=== PATIENT | female | born 1995 | race Caucasian/White ===

== ENCOUNTER 2018-03-04 05:15 | Inpatient (IN) | payer MEDICAID ==
[2018-03-04] MEDS ORDERED: Sodium Chloride 0.9% 2.5 ML Syringe FLUSH PRN (05:32)
[2018-03-04] MEDS ORDERED: ceFAZolin 2 GM in Premix Bag 1 BAG IV ONE (05:32)
[2018-03-04] MEDS ORDERED: Sodium Chloride 0.9% 10 ML Syringe FLUSH PRN (05:32)
[2018-03-04] MEDS ORDERED: Oxytocin/0.9 % Sodium Chloride 30 UNIT/500 ML BAG IV SCH (05:45)
[2018-03-04] MEDS ORDERED: Citric Acid/Sodium Citrate Solution 30 ML Cup PO SCH (05:45)
[2018-03-04] MEDS: Lactated Ringers 1,000 ML IV SCH ×3 (05:51→08:21)
--- NOTE | 2018-03-04 07:20 | PCM.PREANE ---
Preanesthetic Assessment - Anesthesia/Transfusion/Family Hx Anesthesia History: Prior Anesthesia Reaction Other Type of Anesthesia Reaction Comment: Vomiting; headache after spinal for 2nd 17 months ago... Family History of Anesthesia Reaction: No Transfusion History: No Prior Transfusion(s) Type of Transfusion Reactions: Reports: Other (see below) Additional History: Baby #3 - Review of Systems General: Other (term ) Pulmonary: No Symptoms Cardiovascular: No Symptoms Gastrointestinal: Other (GERD) Neurological: Gait Disturbance (due to posture with ) Other: Reports: None - Physical Assessment NPO Status Date: 03/03/18 NPO Status Time: 22:00 Height: 5 ft Weight: 190 lb ASA Class: 2 Mental Status: Alert & Oriented x3 Airway Class: Mallampati = 1 Dentition: Reports: Normal Dentition Thyro-Mental Finger Breadths: 3 Mouth Opening Finger Breadths: 3 ROM/Head Extension: Full Lungs: Clear to Auscultation, Normal Respiratory Effort Cardiovascular: Regular Rate, Regular Rhythm, No Murmurs - Lab Values: Laboratory Last Values WBC 8.55 K/uL (4.0-11.0) 03/04/18 05:50 RBC 4.19 M/uL (4.30-5.90) L 03/04/18 05:50 Hgb 13.2 g/dL (12.0-16.0) 03/04/18 05:50 Hct 38.7 % (36.0-46.0) 03/04/18 05:50 MCV 92.4 fL (80.0-98.0) 03/04/18 05:50 MCH 31.5 pg (27.0-32.0) 03/04/18 05:50 MCHC 34.1 g/dL (31.0-37.0) 03/04/18 05:50 RDW Std Deviation 44.3 fl (28.0-62.0) 03/04/18 05:50 RDW Coeff of Rosalia 13 % (11.0-15.0) 03/04/18 05:50 Plt Count 160 K/uL (150-400) 03/04/18 05:50 MPV 11.00 fL (7.40-12.00) 03/04/18 05:50 Nucleated RBC % 0.0 /100WBC 03/04/18 05:50 Nucleated RBCs # 0 K/uL 03/04/18 05:50 Blood Type O POSITIVE 03/04/18 05:50 Antibody Screen NEGATIVE 03/04/18 05:50 - Allergies Allergies/Adverse Reactions: Allergies Allergy/AdvReac Type Severity Reaction Status Date / Time morphine Allergy Itching Verified 02/28/18 11:18 - Blood Blood Available: No Product(s) Available: PRBC (T and S) - Anesthesia Plan Pre-Op Medication Ordered: Antacids - Acknowledgements Anesthesia Type Planned: Spinal Pt an Appropriate Candidate for the Planned Anesthesia: Yes Alternatives and Risks of Anesthesia Discussed w Pt/Guardian: Yes Pt/Guardian Understands and Agrees with Anesthesia Plan: Yes Additional Comments: no morphine in spinal due to svere pruritis hx PreAnesthesia Questionnaire Gastrointestinal History: Reports: GERD Genitourinary History: Reports: Other (See Below) Other Genitourinary History: has one normal kidney and one "very small kidney" [employer]CH[employer]ICIAN History: Reports: Musculoskeletal History: Reports: Fracture Other Musculoskeletal History: hx of fx right great toe and ribs Endocrine/Metabolic History: Reports: Obesity/BMI 30+ - Infectious Disease History Infectious Disease History: Reports: Chicken Pox - Past Surgical History GI Surgical History: Reports: Cholecystectomy Female Surgical History: Reports: Section - SUBSTANCE USE Smoking Status *Q: Never Smoker Tobacco Use Within Last Twelve Months: No Second Hand Smoke Exposure: No Recreational Drug Use History: No - HOME MEDS Home Medications: Home Meds Vit W-Ca,Fe,FA(<1 mg) [ Vitamins] 1 tab PO DAILY 02/28/18 [ History] - CURRENT (IN HOUSE) MEDS Current Meds: Current Medications Citric Acid/Sodium Citrate (Bicitra Solution) 30 ml PO .ONCE TORIBIO Lactated Ringer's (Ringers, Lactated) 1,000 mls @ 500 mls/hr IV .BOLUS TORIBIO Last Admin: 03/04/18 06:41 Dose: 500 mls/hr Oxytocin/Sodium Chloride (Oxytocin 30 Unit/500 Ml-Ns) 30 unit in 500 mls @ 250 mls/hr IV TITRATE TORIBIO Sodium Chloride (Saline Flush) 10 ml FLUSH ASDIRECTED PRN PRN Reason: Keep Vein Open Sodium Chloride (Saline Flush) 2.5 ml FLUSH ASDIRECTED PRN PRN Reason: Keep Vein Open Discontinued Medications Cefazolin Sodium/Dextrose 2 gm (/ Premix) 50 mls @ 100 mls/hr IV ONETIME ONE Stop: 03/04/18 06:01
[2018-03-04] MEDS ORDERED: ePHEDrine 50 MG/ML SDV ONE (07:34)
[2018-03-04] MEDS ORDERED: Propofol 200 MG/20 ML SDV ONE (07:34)
[2018-03-04] MEDS ORDERED: Succinylcholine 200 MG/10 ML MDV ONE (07:34)
[2018-03-04] MEDS ORDERED: fentaNYL 100 MCG/2 ML SDV ONE (07:34)
[2018-03-04] MEDS ORDERED: Oxytocin 10 Units/1 ML SDV ONE (07:36)
[2018-03-04] MEDS ORDERED: ceFAZolin/Dextrose,Iso-Osmotic 2 GM/50 ML Duplex Bag IV ONE (07:56)
[2018-03-04] MEDS ORDERED: Nalbuphine 10 MG/ML 10 ML MDV ONE (10:01)
[2018-03-04] MEDS ORDERED: Octyl 2-Cyanoacrylate 1 Tube ONE (10:03)
[2018-03-04] MEDS ORDERED: Lidocaine 2% 5 ML SDV ONE (10:19)
--- NOTE | 2018-03-04 10:19 | PCM.OPNOTE ---
- General Post-Op/Procedure Note Date of Surgery/Procedure: 03/04/18 Operative Procedure(s): repeat low transverse Findings: Liveborn male 05/04 weight 3820 grams, normal pelvis Pre Op Diagnosis: 39 week prior , declines VTOL Post-Op Diagnosis: Same Anesthesia Technique: Spinal Primary Surgeon: Oriana Hurtado Anesthesia Provider: Patricio Price Pathology: none Fluid Replacement, Intraop: 1,000 Output, Urine Amount: 60 EBL in mLs: 500 Complications: None Known Condition: Good
[2018-03-04] MEDS ORDERED: Bisacodyl 10 MG Supp RECTAL PRN (10:23)
[2018-03-04] MEDS ORDERED: Lanolin 100% Cream 7 GM Tube TOP PRN (10:23)
[2018-03-04] MEDS ORDERED: diphenhydrAMINE 50 MG/ML SDV IVPUSH PRN (10:23)
[2018-03-04] MEDS ORDERED: Ondansetron 4 MG/2 ML SDV IV PRN (10:23)
[2018-03-04] MEDS ORDERED: Lactated Ringers 1,000 ML IV SCH (10:30)
[2018-03-04] MEDS: Ketorolac 30 MG/ML SDV IVPUSH SCH ×3 (10:53→22:26)
--- NOTE | 2018-03-04 11:08 | PCM.POSTAN ---
POST ANESTHESIA ASSESSMENT - MENTAL STATUS Mental Status: Alert, Oriented - RESPIRATORY Respiratory Status: Respiratory Rate WNL, Airway Patent, O2 Saturation Stable - CARDIOVASCULAR CV Status: Pulse Rate WNL, Blood Pressure Stable - GASTROINTESTINAL GI Status: No Symptoms - PAIN Pain Score: 0 - POST OP HYDRATION Hydration Status: Adequate & Stable - OBSERVATIONS Free Text/Narrative:: Pt stable for discharge to phase II recovery on OB.
--- NOTE | 2018-03-04 13:40 | OR ---
SURGEON: Oriana Hurtado M.D. DATE OF PROCEDURE: 03/04/2018 PREOPERATIVE DIAGNOSES: 1. 39-week intrauterine . 2. Prior delivery x2. 3. Declines vaginal trial of labor. POSTOPERATIVE DIAGNOSES: 1. 39-week intrauterine . 2. Prior delivery x2. 3. Declines vaginal trial of labor. PROCEDURE: Repeat low-transverse section. ANESTHESIA: Spinal. ESTIMATED BLOOD LOSS: Less than 500 mL. FLUIDS: 1000 mL of crystalloid. URINE OUTPUT: 60 mL. FINDINGS: Live-born male, score 9 and 9, weighing 3820 g. Normal-appearing uterus, tubes, and ovaries. COMPLICATIONS: None known. DISPOSITION: Stable to recovery. BRIEF HISTORY: This is a 22-year-old female, she is G3, P2-0-0-2. She presents at 39 weeks' gestation for repeat low-transverse section with risks discussed including bleeding, infection, injury to bowel, bladder, blood vessels, ureters, other organs, risk of thromboembolic event, and risk of anesthesia. She has had uncomplicated course. She desires to proceed with repeat . DESCRIPTION OF PROCEDURE: With the patient in the left tilt position under adequate spinal analgesia, the abdomen was prepped with Betadine and draped in the usual fashion for abdominal surgery. SCDs were in place. Andrea catheter was in place and an appropriate time-out was held. After documentation of adequate analgesia, the prior cicatrix was excised and the skin was carried through the subcutaneous tissue in a transverse fashion to the fascia, which was carried transversely in the midline. The fascia was elevated and using curved Sharp scissors, incision was extended laterally. The fascia was elevated from the underlying rectus muscle and using sharp and blunt dissection. The peritoneum was entered in the midline using hemostats and entering with Metzenbaum scissors. A finger was placed into the peritoneal cavity. There was no evidence of any adhesions anteriorly; therefore, the incision was extended using sharp and blunt dissection. The Josias O retractor was placed. The visceroperitoneum over the lower uterine segment was incised and an adequate bladder flap was developed and a transverse curvilinear incision was made over the lower uterine segment with a scalpel. The incision was extended using blunt dissection. The amniotic membranes were ruptured. Clear fluid was noted. The head was delivered via the uterine incision with fundal pressure. The was bulb suctioned by nose and mouth. The remainder of the 's body was delivered without any difficulty and the cord was clamped x2 and cut. The handed to the nurse in attendance at delivery. The infant was a liveborn male, score 9 and 9, weighing 3820 g. Cord blood was collected for cord ABGs as well as routine cord blood sampling. Pitocin was initiated after delivery of the infant to assist with delivery of the placenta, which was delivered with manual assistance. The uterus was cleaned with dry laparotomy tape. The cervix was opened with ring forceps. The uterine incision was closed with a running lock suture of 0 Polysorb followed by an imbricating layer of 0 Polysorb. The uterine incision was carefully inspected. There were few areas of bleeding from prior blood vessels from prior surgery. These were cauterized. A single figure- of-eight suture was placed in the midline for complete hemostasis. The tubes and ovaries were inspected. They appeared normal. The pericolic gutters and posterior cul-de-sac were cleaned with wet laparotomy tape. The uterine incision was again inspected, it was completely hemostatic. Therefore, the Josias O retractor was removed. Final inspection confirmed hemostasis. The rectus muscle and peritoneum were then loosely approximated in the midline using a running mattress suture of 0 Polysorb. Posterior aspect of the fascia was inspected and any areas of bleeding that were noted were cauterized. The fascial incision was closed with a running suture of 0 Polysorb. Subcutaneous tissue was copiously irrigated. Any areas of bleeding that were noted were cauterized. The skin was closed with a running subcuticular suture of 3-0 Monocryl followed by Dermabond. Final sponge, needle, and instrument counts were reported as correct. There were no known complications. Mother is in recovery in good condition. Infant is in nursery in good condition. MANISHA / TY /[id number]
[2018-03-04] MEDS: Docusate Sodium 100 MG Cap PO SCH (22:26)
--- NOTE | 2018-03-04 23:24 | PCM48HPAN ---
Post Anesthesia Note - EVALUATION WITHIN 48HRS OF ANESTHETIC Vital Signs in Normal Range: Yes Patient Participated in Evaluation: Yes Respiratory Function Stable: Yes Airway Patent: Yes Cardiovascular Function Stable: Yes Hydration Status Stable: Yes Pain Control Satisfactory: Yes Nausea and Vomiting Control Satisfactory: Yes Mental Status Recovered: Yes Resp Rate: 20 Blood Pressure: 117/58 - COMMENTS/OBSERVATIONS Free Text/Narrative:: Pt doing well, just wants to sleep - refused last dose of IV Tordol per nursing. No apparent anesthesia complications.
[2018-03-05] MEDS: Ketorolac 30 MG/ML SDV IVPUSH SCH ×4 (00:30→10:14)
[2018-03-05] MEDS: Acetaminophen/HYDROcodone 325-10 MG Tab PO PRN ×2 (05:45→19:57)
--- NOTE | 2018-03-05 08:56 | PCM.PNPP ---
- General Info Date of Service: 03/05/18 Admission Dx/Problem (Free Text): Functional Status: Reports: Pain Controlled, Tolerating Diet, Ambulating, Urinating - Review of Systems General: Reports: No Symptoms HEENT: Reports: No Symptoms Pulmonary: Reports: No Symptoms Cardiovascular: Reports: No Symptoms Gastrointestinal: Reports: No Symptoms Genitourinary: Reports: No Symptoms Musculoskeletal: Reports: No Symptoms Skin: Reports: No Symptoms Neurological: Reports: No Symptoms Psychiatric: Reports: No Symptoms - Patient Data Vital Signs - Most Recent: Last Vital Signs Temp 36.6 C 03/05/18 08:41 Pulse 90 03/05/18 08:41 Resp 20 03/05/18 08:41 BP 106/67 03/05/18 08:41 Pulse Ox 96 03/05/18 08:41 Weight - Most Recent: 86.183 kg Lab Results - Last 24 Hours: Laboratory Results - last 24 hr 03/05/18 Range/Units 05:03 Hgb 11.9 L (12.0-16.0) g/dL Hct 35.1 L (36.0-46.0) % Med Orders - Current: Current Medications Hydrocodone Bitart/Acetaminophen ([place] 325-10 Mg) 1 tab PO Q4H PRN PRN Reason: Abdominal Pain Last Admin: 03/05/18 05:45 Dose: 1 tab Bisacodyl (Dulcolax) 10 mg RECTAL .ONCE PRN PRN Reason: Constipation Diphenhydramine HCl (Benadryl) 25 mg IVPUSH Q6H PRN PRN Reason: Itching or Nausea Docusate Sodium (Colace) 100 mg PO BID [facility] Last Admin: 03/04/18 22:26 Dose: 100 mg Emollient Ointment (Lansinoh Hpa) 0 gm TOP ASDIRECTED PRN PRN Reason: Sore Nipples Lactated Ringer's (Ringers, Lactated) 1,000 mls @ 75 mls/hr IV ASDIRECTED [facility] Ibuprofen (Motrin) 800 mg PO Q8H PRN PRN Reason: mild pain or fever Ketorolac Tromethamine (Toradol) 30 mg IVPUSH Q6H [facility] Stop: 03/05/18 10:31 Last Admin: 03/05/18 08:11 Dose: 30 mg Ondansetron HCl (Zofran) 4 mg IV Q4H PRN PRN Reason: Nausea/Vomiting Discontinued Medications Cefazolin Sodium/Dextrose (Ancef) Confirm Administered Dose 2 gm IV .STK-MED ONE Stop: 03/04/18 07:57 Citric Acid/Sodium Citrate (Bicitra Solution) 30 ml PO .ONCE TORIBIO Last Admin: 03/04/18 08:22 Dose: 30 ml Ephedrine Sulfate (Ephedrine Sulfate) Confirm Administered Dose 50 mg .ROUTE .STK-MED ONE Stop: 03/04/18 07:35 Fentanyl (Sublimaze) Confirm Administered Dose 100 mcg .ROUTE .STK-MED ONE Stop: 03/04/18 07:35 Cefazolin Sodium/Dextrose 2 gm (/ Premix) 50 mls @ 100 mls/hr IV ONETIME ONE Stop: 03/04/18 06:01 Lactated Ringer's (Ringers, Lactated) 1,000 mls @ 500 mls/hr IV .BOLUS TORIBIO Last Admin: 03/04/18 08:21 Dose: 150 mls/hr Oxytocin/Sodium Chloride (Oxytocin 30 Unit/500 Ml-Ns) 30 unit in 500 mls @ 250 mls/hr IV TITRATE TORIBIO Lidocaine (Xylocaine-Mpf 2%) Confirm Administered Dose 5 ml .ROUTE .STK-MED ONE Stop: 03/04/18 10:20 Nalbuphine HCl (Nubain) Confirm Administered Dose 100 mg .ROUTE .STK-MED ONE Stop: 03/04/18 10:02 Octyl Cyanoacrylate (Dermabond Advance) Confirm Administered Dose 1 applic .ROUTE .STK-MED ONE Stop: 03/04/18 10:04 Oxytocin (Pitocin) Confirm Administered Dose 30 unit .ROUTE .STK-MED ONE Stop: 03/04/18 07:37 Propofol (Diprivan 20 Ml) Confirm Administered Dose 200 mg .ROUTE .STK-MED ONE Stop: 03/04/18 07:35 Sodium Chloride (Saline Flush) 10 ml FLUSH ASDIRECTED PRN PRN Reason: Keep Vein Open Sodium Chloride (Saline Flush) 2.5 ml FLUSH ASDIRECTED PRN PRN Reason: Keep Vein Open Succinylcholine Chloride (Quelicin) Confirm Administered Dose 200 mg .ROUTE .STK -MED ONE Stop: 03/04/18 07:35 - Interaction Infant Disposition, : [place] in Room with Family Interaction: Holding Feeding: Other (see below) (pumping) Support Person: Significant Other - Recovery Exam Fundal Tone: Firm Fundal Level: At Umbilicus Fundal Placement: Midline Lochia Amount: Scant Lochia Color: Rubra/Red Bladder Status: Voiding Urinary Elimination: Indwelling Catheter - Exam General: Alert, Oriented HEENT: Pupils Equal Neck: Supple Lungs: Clear to Auscultation, Normal Respiratory Effort Cardiovascular: Regular Rate, Regular Rhythm GI/Abdominal Exam: Normal Bowel Sounds, Soft, Non-Tender, No Organomegaly, No Distention Extremities: Normal Inspection, Non-Tender, No Pedal Edema Skin: Warm, Dry, Intact Wound/Incisions: Healing Well Neurological: No New Focal Deficit Psy/Mental Status: Alert, Normal Affect, Normal Mood - Problem List & Annotations (1) delivery delivered SNOMED Code(s): 815450352 Code(s): O82 - ENCOUNTER FOR DELIVERY WITHOUT INDICATION Status: Acute Current Visit: Yes - Problem List Review Problem List Initiated/Reviewed/Updated: Yes - My Orders Last 24 Hours: My Active Orders 03/04/18 10:23 Patient Status [ADT] Routine Ambulate [RC] PER UNIT ROUTINE Communication Order [RC] PER UNIT ROUTINE Communication Order [RC] PER UNIT ROUTINE May Shower [RC] ASDIRECTED Notify Provider Intake and Out [RC] ASDIRECTED Notify Provider Vital Signs [RC] ASDIRECTED RT Incentive Spirometry [RC] Q2HWA Vital Signs [RC] PER UNIT ROUTINE Acetaminophen/HYDROcodone [[place] 325-10 MG] 1 tab PO Q4H PRN Bisacodyl [Dulcolax] 10 mg RECTAL .ONCE PRN Ibuprofen [Motrin] 800 mg PO Q8H PRN Lanolin [Lansinoh HPA] See Dose Instructions TOP ASDIRECTED PRN Ondansetron [Zofran] 4 mg IV Q4H PRN diphenhydrAMINE [Benadryl] 25 mg IVPUSH Q6H PRN Abdominal Binder [OM.PC] Urgent Assess Lochia [WOMSER] Per Unit Routine Assess Uterine Involution [WOMSER] Per Unit Routine Breast Pump [WOMSER] Per Unit Routine Peripheral IV Discontinue [OM.PC] Routine Sequential Compression Device [OM.PC] Per Unit Routine Resuscitation Status Routine 03/04/18 10:30 Ketorolac [Toradol] 30 mg IVPUSH Q6H Lactated Ringers [Ringers, Lactated] 1,000 ml IV ASDIRECTED 03/04/18 21:00 Docusate Sodium [Colace] 100 mg PO BID 03/04/18 Lunch Regular Diet [DIET] - Assessment Assessment:: POD#1 after repeat low transverse Stable, minimal lochia, minimal pain. She is using oral pain medications only. Pumping and bottle feeding. - Plan Plan:: Continue postop care, anticipate home in am.
[2018-03-05] MEDS: Ibuprofen 800 MG Tab PO PRN ×2 (13:58→22:42)
[2018-03-05] MEDS: Docusate Sodium 100 MG Cap PO SCH ×2 (13:58→22:43)
[2018-03-06] MEDS: Acetaminophen/HYDROcodone 325-10 MG Tab PO PRN ×2 (02:11→09:55)
--- NOTE | 2018-03-06 08:14 | PCM.PNPP ---
- General Info Date of Service: 03/06/18 Admission Dx/Problem (Free Text): Functional Status: Reports: Pain Controlled, Tolerating Diet, Ambulating, New Symptoms (left leg has become more swollen than the right, slightly tender.) - Review of Systems General: Reports: No Symptoms HEENT: Reports: No Symptoms Pulmonary: Reports: No Symptoms Cardiovascular: Reports: Edema Gastrointestinal: Reports: No Symptoms Genitourinary: Reports: No Symptoms Musculoskeletal: Reports: No Symptoms Skin: Reports: No Symptoms Neurological: Reports: No Symptoms Psychiatric: Reports: No Symptoms Systems Review Comment:: pumping getting about 6 oz - Patient Data Vital Signs - Most Recent: Last Vital Signs Temp 36.5 C 03/06/18 04:00 Pulse 87 03/05/18 21:00 Resp 16 03/06/18 04:00 BP 111/61 03/06/18 04:00 Pulse Ox 97 03/06/18 04:00 Weight - Most Recent: 86.183 kg Med Orders - Current: Current Medications Hydrocodone Bitart/Acetaminophen ([place] 325-10 Mg) 1 tab PO Q4H PRN PRN Reason: Abdominal Pain Last Admin: 03/06/18 02:11 Dose: 1 tab Bisacodyl (Dulcolax) 10 mg RECTAL .ONCE PRN PRN Reason: Constipation Diphenhydramine HCl (Benadryl) 25 mg IVPUSH Q6H PRN PRN Reason: Itching or Nausea Docusate Sodium (Colace) 100 mg PO BID TORIBIO Last Admin: 03/05/18 22:43 Dose: 100 mg Emollient Ointment (Lansinoh Hpa) 0 gm TOP ASDIRECTED PRN PRN Reason: Sore Nipples Lactated Ringer's (Ringers, Lactated) 1,000 mls @ 75 mls/hr IV ASDIRECTED [facility] Ibuprofen (Motrin) 800 mg PO Q8H PRN PRN Reason: mild pain or fever Last Admin: 03/05/18 22:42 Dose: 800 mg Ondansetron HCl (Zofran) 4 mg IV Q4H PRN PRN Reason: Nausea/Vomiting Discontinued Medications Cefazolin Sodium/Dextrose (Ancef) Confirm Administered Dose 2 gm IV .STK-MED ONE Stop: 03/04/18 07:57 Citric Acid/Sodium Citrate (Bicitra Solution) 30 ml PO .ONCE TORIBIO Last Admin: 03/04/18 08:22 Dose: 30 ml Ephedrine Sulfate (Ephedrine Sulfate) Confirm Administered Dose 50 mg .ROUTE .STK-MED ONE Stop: 03/04/18 07:35 Fentanyl (Sublimaze) Confirm Administered Dose 100 mcg .ROUTE .STK-MED ONE Stop: 03/04/18 07:35 Cefazolin Sodium/Dextrose 2 gm (/ Premix) 50 mls @ 100 mls/hr IV ONETIME ONE Stop: 03/04/18 06:01 Lactated Ringer's (Ringers, Lactated) 1,000 mls @ 500 mls/hr IV .BOLUS TORIBIO Last Admin: 03/04/18 08:21 Dose: 150 mls/hr Oxytocin/Sodium Chloride (Oxytocin 30 Unit/500 Ml-Ns) 30 unit in 500 mls @ 250 mls/hr IV TITRATE TORIBIO Ketorolac Tromethamine (Toradol) 30 mg IVPUSH Q6H TORIBIO Stop: 03/05/18 10:31 Last Admin: 03/05/18 10:14 Dose: Not Given Lidocaine (Xylocaine-Mpf 2%) Confirm Administered Dose 5 ml .ROUTE .STK-MED ONE Stop: 03/04/18 10:20 Nalbuphine HCl (Nubain) Confirm Administered Dose 100 mg .ROUTE .STK-MED ONE Stop: 03/04/18 10:02 Octyl Cyanoacrylate (Dermabond Advance) Confirm Administered Dose 1 applic .ROUTE .STK-MED ONE Stop: 03/04/18 10:04 Oxytocin (Pitocin) Confirm Administered Dose 30 unit .ROUTE .STK-MED ONE Stop: 03/04/18 07:37 Propofol (Diprivan 20 Ml) Confirm Administered Dose 200 mg .ROUTE .STK-MED ONE Stop: 03/04/18 07:35 Sodium Chloride (Saline Flush) 10 ml FLUSH ASDIRECTED PRN PRN Reason: Keep Vein Open Sodium Chloride (Saline Flush) 2.5 ml FLUSH ASDIRECTED PRN PRN Reason: Keep Vein Open Succinylcholine Chloride (Quelicin) Confirm Administered Dose 200 mg .ROUTE .STK -MED ONE Stop: 03/04/18 07:35 - Infant Interaction Infant Disposition, : at Bedside Infant Interaction: Holding Infant Infant Feeding: Other (see below) (pumping) Support Person: Significant Other - Recovery Exam Fundal Tone: Firm Fundal Level: At Umbilicus Fundal Placement: Midline Lochia Amount: Scant Lochia Color: Rubra/Red Perineum Description: Intact, Minimal Bruising/Swelling Episiotomy/Laceration: None Bladder Status: Voiding Urinary Elimination: Indwelling Catheter - Exam General: Alert, Oriented HEENT: Pupils Equal Neck: Supple Lungs: Normal Respiratory Effort GI/Abdominal Exam: Soft, No Organomegaly, No Distention Extremities: Normal Inspection, Normal Range of Motion, Non-Tender, Normal Capillary Refill. No: No Pedal Edema (1+ on right, 2+ on left, no erythema or warmth, no Bev's sign) Skin: Warm, Dry, Intact Wound/Incisions: Healing Well Neurological: No New Focal Deficit Psy/Mental Status: Alert, Normal Affect, Normal Mood - Problem List & Annotations (1) delivery delivered SNOMED Code(s): 801815295 Code(s): O82 - ENCOUNTER FOR DELIVERY WITHOUT INDICATION Status: Acute Current Visit: Yes - Problem List Review Problem List Initiated/Reviewed/Updated: Yes - My Orders Last 24 Hours: My Active Orders 03/06/18 08:09 Venous Doppler Lwr Ext Lt [US] Urgent - Assessment Assessment:: POD#2 after repeat low transverse Stable, minimal lochia, minimal pain. She is doing well on oral pain medications only. Pumping and bottle feeding. She has noticed more swelling and tenderness on left lower extremity compared to the right, low suspicion on clinical exam, but will get doppler. - Plan Plan:: Check doppler LLE to rule out DVT, if normal, may be discharged to home. Discharge instructions reviewed. Continue pain medication, and vitamins
--- NOTE | 2018-03-06 09:15 | US ---
ULTRASOUND EXAMINATION OF the left lower extremity WITH DOPPLER HISTORY: Swelling FINDINGS: Examination of the left leg was performed from the groin to the calf region. All visualized segments including common femoral, proximal greater saphenous, superficial femoral, popliteal and calf veins appear patent with good compressibility and augmentation. There is no evidence of deep vein thrombos is. IMPRESSION: No evidence of a DVT.
[2018-03-06] MEDS: Docusate Sodium 100 MG Cap PO SCH (09:55)
== END 2018-03-06 10:05 | disposition home or self-care (01) | DRG 766 ==
LOC: MW.OB 05:15
PROVIDERS: ADMIT Obstetrics & Gynecology; ATTEND Obstetrics & Gynecology
PROC: 10D00Z1 Extraction of Products of Conception, Low, Open Approach (ICD-10-PCS; principal; 2018-03-04)
DX: O34.211 Maternal care for low transverse scar from previous cesarean delivery (principal); M79.89 Other specified soft tissue disorders; Z3A.39 39 weeks gestation of pregnancy; Z37.0 Single live birth
CPT/HCPCS: 36415; 59025; 85014; 85018; 85027; 86850; 86900; 86901; 93971-26-LT; 93971-LT; A9270-GY; J0330; J0690; J1885; J2300; J2590; J2704; J3010; J7120